=== PATIENT | male | born 1990 | race Caucasian/White ===

== ENCOUNTER 2017-06-26 22:24 | Emergency (ER) | payer OTHER ==
[~2017-06-26] VITALS: Ht 175.3 cm; Wt 59.9 kg
[2017-06-26 22:34] VITALS: BP 121/87
--- NOTE | 2017-06-26 23:18 | NUR ---
PT TAKEN TO BED 3
--- NOTE | 2017-06-26 23:27 | NUR ---
Dr. Osborn evaluating patient at bedside.
[2017-06-26] MEDS ORDERED: HYDROcodone/APAP 5/325 MG 1 TAB TAB PO ONE (23:40)
--- NOTE | 2017-06-27 00:13 | NUR ---
26Y/M PRESENTS TO ER C/O SORETHROAT AND RASH. PMH SCOLIOSIS, ALLERGY TO IBUPROFEN. PT STATES HE SLEPT WITH THE WINDOW OPEN LAST NIGHT AND WOKE UP THIS MORNING WITH A RASH AND SORE THROAT. PT HAS RASH THAT IS SMALL RED [place] LIKE, NON RAISED, PAINFUL AND ITCHING RASH THAT STARTS AT THE FEET AND IS GENERALIZED OVER THE ENTIRE BODY EXCEPT THE HEAD/NECK /FACE. PT SAYS SORETHROAT FEELS LIKE "SWALLOWING RAZORS" 9/10, NON RADIATING PAIN. NO BLEEDING OR DISCHARGE NOTED FROM RASH AT THIS TIME. PT STATES RASH ONLY HURTS WHEN TOUCHED. PT IN BED, ER MD NOTIFIED OF PT STATUS.
[2017-06-27 00:15] LABS: ANION GAP 10.5 (8-16); CARBON DIOXIDE 31.4 mmol/L (21-32); CREATININE 0.9 mg/dL (0.7-1.3); POTASSIUM 3.9 mmol/L (3.5-5.1)
[2017-06-27 00:43] LABS: PROTHROMBIN TIME 9.8 secs (10.8-13.4)
[2017-06-27 00:44] LABS: HEMATOCRIT 43.4 % (36-52); HEMOGLOBIN 14.6 g/dL (12.0-18.0); MEAN CORPUSCULAR HEMOGLOBIN 30 pg (27-31); MEAN CORPUSCULAR HGB CONC 34 g/dL (33-37); MEAN CORPUSCULAR VOLUME 90 fL (80-94); PLATELET COUNT (AUTO) 178 K/uL (140-450); RED CELL DISTRIBUTION WIDTH 12.1 % (11.6-13.7); WHITE BLOOD COUNT (AUTO) 5.1 K/uL (4.8-10.8)
[2017-06-27 00:46] LABS: EOSINOPHILS % (MANUAL) 2 % (0-4); LYMPHOCYTES % (MANUAL) 30 % (20-46); MONOCYTES % (MANUAL) 14 % (5-12)
[2017-06-27 01:14] VITALS: BP 105/55
--- NOTE | 2017-06-27 01:15 | NUR ---
Patient discharged with v/s stable. Written and verbal after care instructions given and explained. Patient alert, oriented and verbalized understanding of instructions. Ambulatory with steady gait. All questions addressed prior to discharge. ID band removed. Patient advised to follow up with PMD. Rx of NORCO 5MG given. Patient educated on indication of medication including possible reaction and side effects. Opportunity to ask questions provided and answered.
== END 2017-06-27 01:15 | disposition home or self-care (01) ==
LOC: MED 22:24
DX: J02.9 Acute pharyngitis, unspecified (principal); R21 Rash and other nonspecific skin eruption; Z88.8 Allergy status to other drugs, medicaments and biological substances
CPT/HCPCS: 36415; 80048; 85025; 85610; 85730; 99284

== ENCOUNTER 2017-07-04 09:18 | Emergency (ER) | payer OTHER ==
[~2017-07-04] VITALS: Ht 175.3 cm; Wt 61.2 kg
[2017-07-04 09:30] VITALS: BP 117/66
[2017-07-04] MEDS: HYDROcodone/APAP 5/325 MG 1 TAB TAB PO ONE (10:13)
[2017-07-04] MEDS: diphenhydrAMINE 50 MG/ML VIAL IM ONE (10:13)
[2017-07-04 10:46] VITALS: BP 112/62
[2017-07-04 11:19] LABS: BARBITURATE, URINE NEG. ng/ml (NEG <=200); BENZODIAZEPINE, URINE NEG. ng/mL (NEG <=200); CANNABINOID, URINE POS. ng/mL (NEG <=50); COCAINE, URINE NEG. ng/mL (NEG <=300); OPIATE, URINE NEG. ng/mL (NEG <=2000); PHENCYCLIDINE SCREEN,URINE NEG. ng/mL (NEG <=25)
== END 2017-07-04 10:46 | disposition home or self-care (01) ==
LOC: MED 09:18
DX: S90.862A Insect bite (nonvenomous), left foot, initial encounter (principal); S90.861A Insect bite (nonvenomous), right foot, initial encounter; F12.10 Cannabis abuse, uncomplicated; Z88.6 Allergy status to analgesic agent; W57.XXXA Bitten or stung by nonvenomous insect and other nonvenomous arthropods, initial encounter; Y93.89 Activity, other specified; Y92.89 Other specified places as the place of occurrence of the external cause; Y99.8 Other external cause status
CPT/HCPCS: 80305; 99283

== ENCOUNTER 2017-09-25 12:54 | Emergency (ER) | payer OTHER ==
[~2017-09-25] VITALS: Ht 172.7 cm; Wt 54.6 kg
[2017-09-25 13:00] VITALS: BP 117/78
--- NOTE | 2017-09-25 13:04 | NUR ---
PT AMBULATES TO CHAIR B
--- NOTE | 2017-09-25 13:12 | NUR ---
C/O DRY COUGH, CONGESTION, HEAD ACHE 10/10 WITH LIGHT HEADED X 2 DAYS . DENIES N/V/D; SKIN IS PINK/WARM/DRY; AAOX4 WITH EVEN AND STEADY GAIT; LUNGS CLEAR BL; HR EVEN AND REGULAR; PT DENIES ANY FEVER, CP, SOB, AT THIS TIME; PATIENT STATES PAIN OF 10/10 AT THIS TIME; VSS; PATIENT POSITIONED FOR COMFORT; ER MD MADE AWARE OF PT STATUS.
--- NOTE | 2017-09-25 13:53 | NUR ---
MD speaking with pt
[2017-09-25 14:09] VITALS: BP 120/70
--- NOTE | 2017-09-25 14:09 | NUR ---
Patient discharged with v/s stable. Written and verbal after care instructions given and explained. Patient verbalized understanding. Ambulatory with steady gait. All questions addressed prior to discharge. Advised to follow up with PMD.
== END 2017-09-25 14:09 | disposition home or self-care (01) ==
LOC: MED 12:54
DX: B34.9 Viral infection, unspecified (principal); Z88.6 Allergy status to analgesic agent; Z88.8 Allergy status to other drugs, medicaments and biological substances
CPT/HCPCS: 99281